=== PATIENT | female | born 1935 | race Caucasian/White ===

== ENCOUNTER 2019-10-22 19:01 | Emergency (ER) | payer MEDICARE ==
[~2019-10-22] VITALS: Ht 157.5 cm; Wt 49.9 kg
[~2019-10-22 19:01] MED LIST: NO HOME MEDS
--- NOTE | 2019-10-22 19:40 | NUR ---
PT NOW WITH PIV AND LABX DRAWN. DR. MACDONALD AWARE OF PT. CXR AND EKG COMPLETED. PT TAKEN TO CT. PT A&OX2. 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 UNABLE TO STATED THE MONTH OF YEAR OR EVENTS OF WHY SHE IS HERE. CCOLLAR IN PLACE.
[2019-10-22 19:51] LABS: BASOPHILS # (AUTO) 0.1 X10'3 (0-0.2); BASOPHILS % (AUTO) 1.1 % (0-1); EOSINOPHILS # (AUTO) 0.4 X10'3 (0-0.9); EOSINOPHILS % (AUTO) 5.7 % (0-6); HEMATOCRIT 35.3 % (35.0-45.0); HEMOGLOBIN 11.6 g/dl (12.0-16.0); LYMPHOCYTES # (AUTO) 1.2 X10'3 (1.1-4.8); LYMPHOCYTES % (AUTO) 15.9 % (21-51); MEAN CORPUSCULAR HEMOGLOBIN 30.9 PG (27.0-31.0); MEAN CORPUSCULAR HGB CONC 32.9 g/dL (33.0-36.5); MEAN CORPUSCULAR VOLUME 93.8 FL (78-98); MEAN PLATELET VOLUME 7.5 FL (7.4-10.4); MONOCYTES # (AUTO) 0.4 X10'3 (0-0.9); MONOCYTES % (AUTO) 6.1 % (2-12); NEUTROPHILS # (AUTO) 5.2 X10'3 (1.8-7.7); NEUTROPHILS % (AUTO) 71.2 % (42-75); PLATELET COUNT 248 X10'3 (140-440); RED BLOOD COUNT 3.76 X10'6 (4.20-5.60); RED CELL DISTRIBUTION WIDTH 14.4 % (11.5-14.5); WHITE BLOOD COUNT 7.3 X10'3 (4.5-11.0)
[2019-10-22 20:06] LABS: ALANINE AMINOTRANSFERASE 37 U/L (12-78); ALBUMIN 3.7 G/DL (3.4-5.0); ALBUMIN/GLOBULIN RATIO 0.9 (1.1-1.5); ALKALINE PHOSPHATASE 100 IU/L (46-116); ANION GAP 6 (8-16); ASPARTATE AMINO TRANSFERASE 34 U/L (10-37); BILIRUBIN,TOTAL 0.2 MG/DL (0.1-1.0); BLOOD UREA NITROGEN 24 MG/DL (7-18); BUN/CREATININE RATIO 22.9 (6.6-38.0); CALCIUM 10.8 MG/DL (8.5-10.1); CHLORIDE 105 MMOL/L (99-107); CREATININE 1.05 MG/DL (0.40-0.90); GLUCOSE 99 MG/DL (70-104); POTASSIUM 4.6 MMOL/L (3.5-5.1); SODIUM 139 MMOL/L (135-145); TOTAL CARBON DIOXIDE 28.5 MMOL/L (24-32); TOTAL PROTEIN 7.6 G/DL (6.4-8.2); eGFR 50 ML/MIN
[2019-10-22] MEDS ORDERED: LIDOcaine 1% W/epiNEPHrine 1:100,000 20ml vial SQ ONE (20:10)
[2019-10-22 20:15] VITALS: BP 185/95
--- NOTE | 2019-10-22 21:23 | NUR ---
PT IS DC READY BUT REMAINS CONFUSED AND IS UNSTEADY. PT KEEPS TRYING TO GET OUT OF THE BED AND STATES SHE WANTS TO LEAVE. PT UPDATED WE ARE TRYING TO FINDE HER A RIDE HOME. DEMOGRAPHICS NOTE A GRANDSON, MERRY, AND THIS NUMBER CALLED AND MESSAGE LEFT. REGISTRATION REPORTS THAT THE PT ARRIVED WITH A MAN WHO REPORTED HE WAS HER GRANDSON. ANOTHER NUMBER FOR PTS HOME CALLED AND VOICEMAIL WAS FOR A "CHEYANNE", MESSAGE LEFT.
--- NOTE | 2019-10-22 21:37 | NUR ---
WALKED THROUGH THE PARKING LOT TO SEE IF PTS GRANDSON WAS WAITING FOR HER, NO FAMILY OUT THERE. LD TEACHER ALSO TRYING TO GET IN TOUCH WITH FAMILY AND ONLY ABLE TO LEAVE MESSAGE. REGISTRATION REPORTS THE PT WAS ADMITTED HERE 42 DAYS AGO AND ALL OF THE PT INFO WAS UPDATED.
--- NOTE | 2019-10-22 21:43 | NUR ---
TUCKER RECEIVED FROM [phone] FROM SOMEONE NAMED RAY WHO INITIALLY REPORTED HE DID NOT KNOW THE PT. THIS INDIVIDUAL CALLED RIGHT BACK AND REPORTED HE GOT A HOLD OF A FAMILY MEMBER WHO IS ON THEIR WAY TO PICK PT UP NOW. RAY WOULD NOT PROVIDE AN ADDITIONAL PHONE NUMBER.
--- NOTE | 2019-10-22 23:00 | NUR ---
PT STILL AWAITING CLAIMS MANAGER. CALL PLACED AGAIN TO RAY (SEE ABOVE NOTE) TO CHECK ETA. PT IS ANXIOUS. JOSE FERRARO, CALLING RAY AGAIN AND LEARNED THERE IS ANOTHER GRANDSON PAOLA [phone], AND A DAUGHTER , NAT, [phone]. NAT IS ON HER WAY FOR CLAIMS MANAGER AND WILL BE HERE IN ABOUT 40 MIN.
--- NOTE | 2019-10-22 23:14 | NUR ---
pt updated that her daughter will be here in about 30 min. Pt given water and requested tylenol.
[2019-10-22] MEDS ORDERED: acetaminophen 325mg tablet PO ONE (23:15)
--- NOTE | 2019-10-22 23:51 | NUR ---
DAUGHTER, GAMAL ALVAREZ, PICKING PT UP. SHE REPORTS THAT PT HAS [employer] AND LIVES WITH HER. ALL CONTACT INFORMATION HAS BEEN UPDATED WITH REGISTRATION.
== END 2019-10-22 23:56 | disposition home or self-care (01) ==
LOC: ER 19:01
DX: S01.01XA Laceration without foreign body of scalp, initial encounter (principal); S09.90XA Unspecified injury of head, initial encounter; F03.90 Unspecified dementia, unspecified severity, without behavioral disturbance, psychotic disturbance, mood disturbance, and anxiety; Z86.718 Personal history of other venous thrombosis and embolism; W19.XXXA Unspecified fall, initial encounter; Y93.89 Activity, other specified; Y92.89 Other specified places as the place of occurrence of the external cause; Y99.8 Other external cause status
CPT/HCPCS: 12001; 36415; 70450; 71045; 80053; 84484; 85025; 86885; 86900; 86901; 93005; 99285